=== PATIENT | male | born 1990 | race Two or more races ===

== ENCOUNTER 2017-08-22 21:45 | Emergency (ER) | payer OTHER ==
[~2017-08-22] VITALS: Ht 167.6 cm; Wt 80.0 kg
[2017-08-22 22:04] VITALS: BP 124/71
[2017-08-22] MEDS ORDERED: PLEASE ENTER ALLERGIES MC SCH (22:13)
[2017-08-22] MEDS ORDERED: MAALOX/HYOSCYAMINE/LIDOCAINE 45 ML BTL PO ONE (22:30)
[2017-08-22 22:38] LABS: BASOPHILS # (AUTO) 0.01 x10^3/uL (0-0.1); BASOPHILS % (AUTO) 1 % (0-1); EOSINOPHILS # (AUTO) 0.06 x10^3/uL (0-0.4); EOSINOPHILS % (AUTO) 2 % (1-7); LYMPHOCYTES # (AUTO) 1.09 x10^3/uL (1-3.4); LYMPHOCYTES % (AUTO) 33 % (22-44); MD NO; MEAN CORPUSCULAR HEMOGLOBIN 30.8 pg (27.5-34.5); MEAN CORPUSCULAR HGB CONC 35.3 g/dL (33.2-36.2); MEAN CORPUSCULAR VOLUME 87.2 fL (81-97); MEAN PLATELET VOLUME 7.7 fL (7.4-10.4); MONOCYTES # (AUTO) 0.26 x10^3/uL (0.2-0.8); MONOCYTES % (AUTO) 8 % (2-9); NEUTROPHILS # (AUTO) 1.84 x10^3/uL (1.8-6.8); NEUTROPHILS % (AUTO) 56 % (42-75); PLATELET COUNT 192 x10^3/uL (130-400); RED CELL DISTRIBUTION WIDTH 12.4 % (9.4-14.8)
[2017-08-22] MEDS ORDERED: MAALOX/HYOSCYAMINE/LIDOCAINE 45 ML BTL ONE (22:42)
[2017-08-22 22:52] LABS: ALANINE AMINOTRANSFERASE 36 U/L (12-78); ALBUMIN 3.6 g/dL (3.4-5.0); ANION GAP 9 mmol/L (5-15); CALCIUM 8.3 mg/dL (8.5-10.1); CHLORIDE 108 mmol/L (98-107)
[2017-08-22 22:56] LABS: ALKALINE PHOSPHATASE 80 U/L (45-117); BILIRUBIN,TOTAL 0.3 mg/dL (0.2-1.0); TOTAL PROTEIN 7.3 g/dL (6.4-8.2); TROPONIN I < 0.015 ng/mL (0.000-0.045)
== END 2017-08-22 23:55 | disposition home or self-care (01) ==
LOC: ED 23:45
DX: K29.00 Acute gastritis without bleeding (principal)
CPT/HCPCS: 36415; 80053; 83690; 84484; 85025; 93005; 99285

== ENCOUNTER 2018-05-10 15:18 | Emergency (ER) | payer OTHER ==
[~2018-05-10] VITALS: Ht 167.6 cm; Wt 82.0 kg
[2018-05-10 15:48] LABS: BASOPHILS % (AUTO) 0 % (0-1); EOSINOPHILS % (AUTO) 0 % (1-7); LYMPHOCYTES # (AUTO) 0.44 x10^3/uL (1-3.4); LYMPHOCYTES % (AUTO) 6 % (22-44); MD NO; MEAN CORPUSCULAR HEMOGLOBIN 30.9 pg (27.5-34.5); MEAN CORPUSCULAR HGB CONC 35.3 g/dL (33.2-36.2); MEAN CORPUSCULAR VOLUME 87.6 fL (81-97); MEAN PLATELET VOLUME 7.8 fL (7.4-10.4); MONOCYTES # (AUTO) 0.03 x10^3/uL (0.2-0.8); MONOCYTES % (AUTO) 0 % (2-9); NEUTROPHILS # (AUTO) 6.62 x10^3/uL (1.8-6.8); NEUTROPHILS % (AUTO) 93 % (42-75); PLATELET COUNT 235 x10^3/uL (130-400); RED BLOOD COUNT 4.71 x10^6/uL (4.38-5.82); RED CELL DISTRIBUTION WIDTH 12.9 % (9.4-14.8)
[2018-05-10 15:59] LABS: ANION GAP 11 mmol/L (5-15); CALCIUM 8.8 mg/dL (8.5-10.1); CHLORIDE 106 mmol/L (98-107)
[2018-05-10 16:04] LABS: ALANINE AMINOTRANSFERASE 79 U/L (12-78); ALKALINE PHOSPHATASE 95 U/L (45-117); BILIRUBIN,TOTAL 0.3 mg/dL (0.2-1.0); CREATININE 1.18 mg/dL (0.7-1.3); TOTAL PROTEIN 8.7 g/dL (6.4-8.2); TROPONIN I < 0.015 ng/mL (0.000-0.045)
[2018-05-10 18:25] VITALS: BP 123/57
== END 2018-05-10 18:37 | disposition home or self-care (01) ==
LOC: ED 18:30
DX: R06.00 Dyspnea, unspecified (principal)
CPT/HCPCS: 36415; 71045; 80053; 84484; 85025; 93005; 99285

== ENCOUNTER 2020-01-29 22:34 | Emergency (ER) | payer OTHER ==
[~2020-01-29] VITALS: Ht 167.6 cm; Wt 87.4 kg
[2020-01-29 22:41] VITALS: BP 121/74
[2020-01-29 23:32] LABS: BASOPHILS # (AUTO) 0.01 x10^3/uL (0-0.1); BASOPHILS % (AUTO) 0 % (0-1); EOSINOPHILS # (AUTO) 0.02 x10^3/uL (0-0.4); EOSINOPHILS % (AUTO) 1 % (1-7); LYMPHOCYTES # (AUTO) 1.13 x10^3/uL (1-3.4); LYMPHOCYTES % (AUTO) 31 % (22-44); MD NO; MEAN CORPUSCULAR HEMOGLOBIN 30.4 pg (27.5-34.5); MEAN CORPUSCULAR HGB CONC 34.4 g/dL (33.2-36.2); MEAN CORPUSCULAR VOLUME 88.3 fL (81-97); MEAN PLATELET VOLUME 7.7 fL (7.4-10.4); MONOCYTES # (AUTO) 0.28 x10^3/uL (0.2-0.8); MONOCYTES % (AUTO) 8 % (2-9); NEUTROPHILS % (AUTO) 60 % (42-75); PLATELET COUNT 216 x10^3/uL (130-400); RED BLOOD COUNT 4.61 x10^6/uL (4.38-5.82); RED CELL DISTRIBUTION WIDTH 12.8 % (9.4-14.8)
[2020-01-29 23:41] LABS: ALBUMIN 3.6 g/dL (3.4-5.0); ANION GAP 6 mmol/L (5-15); CALCIUM 7.9 mg/dL (8.5-10.1); CHLORIDE 112 mmol/L (98-107)
[2020-01-29 23:53] LABS: ALANINE AMINOTRANSFERASE 36 U/L (12-78); ALKALINE PHOSPHATASE 80 U/L (45-117); BILIRUBIN,TOTAL 0.3 mg/dL (0.2-1.0); TOTAL PROTEIN 7.4 g/dL (6.4-8.2)
== END 2020-01-30 00:10 | disposition home or self-care (01) ==
LOC: ED 01-30 00:06
DX: F41.1 Generalized anxiety disorder (principal); R20.2 Paresthesia of skin; R94.31 Abnormal electrocardiogram [ECG] [EKG]
CPT/HCPCS: 36415; 80053; 84443; 85025; 93005; 99284

== ENCOUNTER 2021-04-26 13:43 | Emergency (ER) | payer OTHER ==
[~2021-04-26] VITALS: Ht 165.1 cm; Wt 86.0 kg
--- NOTE | 2021-04-26 14:58 | NUR ---
TRIM SAWYER: PT TO ROOM FROM [facility] CLEMENTS
[2021-04-26] MEDS ORDERED: METOCLOPRAMIDE 5 MG/ML, 2ML ONE (15:23)
[2021-04-26] MEDS ORDERED: KETOROLAC 30 MG/1 ML ONE (15:23)
[2021-04-26] MEDS ORDERED: METHOCARBAMOL 750 MG TABLET ONE (15:23)
[2021-04-26] MEDS ORDERED: DIPHENHYDRAMINE 50 MG/ML, 1ML ONE (15:23)
[2021-04-26] MEDS ORDERED: DIPHENHYDRAMINE 50 MG/ML, 1ML IVPush ONE (15:30)
[2021-04-26] MEDS ORDERED: KETOROLAC 30 MG/1 ML IVPush ONE (15:30)
[2021-04-26] MEDS ORDERED: METOCLOPRAMIDE 5 MG/ML, 2ML IVPush ONE (15:30)
[2021-04-26] MEDS ORDERED: METHOCARBAMOL 750 MG TABLET PO ONE (15:30)
--- NOTE | 2021-04-26 15:39 | NUR ---
THIS IS A 30 YEAR OLD MALE WITH A 4 DAYS HX OF HEADACHE. PIV STARTED, MEDICATED PER MAR, WARM BLANKET GIVEN, LIGHTS OUT, PT VERBALIZED NO OTHER NEEDS AT THIS TIME
[2021-04-26 16:56] VITALS: BP 93/45
--- NOTE | 2021-04-26 17:00 | NUR ---
Patient given discharge instructions and they have confirmed that they understand the instructions. Patient ambulatory with steady gait.
== END 2021-04-26 17:23 | disposition home or self-care (01) ==
LOC: ED 17:16
DX: R51.9 Headache, unspecified (principal); R42 Dizziness and giddiness; F41.9 Anxiety disorder, unspecified; H57.89 Other specified disorders of eye and adnexa
CPT/HCPCS: 96374; 96375; 99284; J1200; J1885; J2765